=== PATIENT | female | born 1990 | race Caucasian/White ===

== ENCOUNTER 2018-10-19 11:56 | Outpatient (CLI) | payer OTHER | END 2018-10-19 13:23 | disposition home or self-care (01) | LOC: NST 11:56 | DX: Z34.83 Encounter for supervision of other normal pregnancy, third trimester (principal) ==

== ENCOUNTER 2018-10-24 08:12 | Inpatient (IN) | payer OTHER ==
[~2018-10-24] VITALS: Ht 157.5 cm; Wt 72.6 kg
[2018-10-24] MEDS ORDERED: PRENATAL TABLE1 EACH PO (08:43)
== END 2018-10-26 12:35 | disposition home or self-care (01) | DRG 807 ==
LOC: OB/GYN 08:12 → LDR 08:12 → OB/GYN 11:48
PROVIDERS: ADMIT Specialist
PROC: 10E0XZZ Delivery of Products of Conception, External Approach (ICD-10-PCS; principal; 2018-10-24)
PROC: 0W8NXZZ Division of Female Perineum, External Approach (ICD-10-PCS; 2018-10-24)
PROC: 4A0HXFZ Measurement of Products of Conception, Cardiac Rhythm, External Approach (ICD-10-PCS; 2018-10-24)
DX: O80 Encounter for full-term uncomplicated delivery (principal); Z37.0 Single live birth; Z3A.38 38 weeks gestation of pregnancy